=== PATIENT | female | born 1990 | race Two or more races ===

== ENCOUNTER 2020-09-06 08:00 | Outpatient (CLI) | payer OTHER ==
[2020-09-07 20:09] LABS: CANDIDA GROUP DNA NEGATIVE (NEGATIVE); CANDIDA KRUSEI DNA NEGATIVE (NEGATIVE); TRICHOMONAS VAGINALIS DNA NEGATIVE (NEGATIVE)
== END 2020-09-06 23:59 | disposition home or self-care (01) ==
LOC: LAB.R 08:00
PROVIDERS: ATTEND Advanced Practice Midwife
DX: N89.8 Other specified noninflammatory disorders of vagina (principal)
CPT/HCPCS: 87661; 87801

== ENCOUNTER 2020-09-14 11:22 | Outpatient (CLI) | payer OTHER ==
[2020-09-14 18:04] LABS: BASOPHILS % (AUTO) 0.3 %; EOSINOPHILS # (AUTO) 0.1 10^3/uL (0.0-0.7); EOSINOPHILS % (AUTO) 0.5 %; HGB - HEMOGLOBIN 12.8 g/dL (12.0-16.0); LYMPHOCYTES # (AUTO) 1.3 10^3/uL (1.5-3.5); LYMPHOCYTES % (AUTO) 13.6 %; MEAN CORPUSCULAR HEMOGLOBIN 31.6 pg (27.0-31.0); MEAN CORPUSCULAR HGB CONC 34.2 g/dL (32.0-36.0); MEAN CORPUSCULAR VOLUME 92.3 fL (81.0-99.0); MEAN PLATELET VOLUME 11.4 fL (7.9-10.8); MONOCYTES # (AUTO) 0.6 10^3/uL (0.0-1.0); NEUTROPHILS # (AUTO) 7.4 10^3/uL (1.5-6.6); NEUTROPHILS % (AUTO) 78.6 %; PLT - PLATELET COUNT 230 10^3/uL (130-450); RED BLOOD COUNT 4.05 10^6/uL (4.20-5.40); RED CELL DISTRIBUTION WIDTH 13.3 % (12.0-15.0); WHITE BLOOD COUNT 9.4 x10^3/uL (4.8-10.8)
== END 2020-09-14 23:59 | disposition home or self-care (01) ==
LOC: LAB.WCP 11:22
PROVIDERS: ATTEND Advanced Practice Midwife
DX: Z34.90 Encounter for supervision of normal pregnancy, unspecified, unspecified trimester (principal)
CPT/HCPCS: 36415; 82950; 85025; 86850

== ENCOUNTER 2020-09-22 10:30 | Outpatient (CLI) | payer OTHER ==
--- NOTE | 2020-09-22 12:05 | Ultrasound Report ---
PROCEDURE: Transvaginal INDICATIONS: SUPERVISION OF NORMAL ,ANTEPARTUM HEMORRH OUTSIDE/PRIOR DATING DATA: Last menstrual period (LMP): 03/03/2020. LMP-based estimated date of delivery (KATHRYN): 12/08/2020. First dating scan (date and location): [facility], 05/19/2020. Estimated date of delivery (KATHRYN) from first dating scan: 07/23/2020. TECHNIQUE: Real-time scanning was performed of the fetus, with image documentation. Endovaginal scanning: Performed for improved visualization COMPARISON: None available at the time of this dictation. FINDINGS: A single live intrauterine gestation is present. Presentation: Breech Placenta: Placental position is fundal/anterior, without previa. Amniotic fluid index: 12.1 cm, 23rd percentile for gestational age. heart rate: 135 beats per minutes. Maternal cervical canal: 3.3 cm long; there is funneling seen of the internal cervical os, as on imag e 21. IMPRESSION: Funneling is seen of the internal cervical os. The cervical length is 3.3 cm. Note: Concordant preliminary findings given by the minister helper upon the completion of the examination to Dr. Mars at 11:51 AM on 09/22/2020. Reviewed by: Rudi Roberts MD on 09/22/2020 11:03 AM JEFFREY Approved by: Rudi Roberts MD on 09/22/2020 11:03 AM [place] Station ID: [id number]
== END 2020-09-22 10:31 | disposition home or self-care (01) ==
LOC: DI 10:30
PROVIDERS: ATTEND Obstetrics & Gynecology
DX: O46.93 Antepartum hemorrhage, unspecified, third trimester (principal)
CPT/HCPCS: 76830

== ENCOUNTER 2020-11-06 10:49 | Outpatient (CLI) | payer OTHER ==
[2020-11-06 11:31] LABS: RUPTURE OF MEMBRANES PLUS NEGATIVE (NEGATIVE)
[2020-11-06 11:48] VITALS: BP 118/66
--- NOTE | 2020-11-07 11:10 | PROCEDURE REPORT ---
- HPI Diagnosis/Indication for NST: Other (leukorrhea; r/o rupture of membranes) Current EDU 12/05/20 Gestation 35 Weeks and 6 Days 1 Para 0 Vital Signs Temperature 98.2 F 11/06/20 11:00 Heart Rate 78 11/06/20 11:00 Respiratory Rate 20 11/06/20 11:00 Blood Pressure 118/66 11/06/20 11:00 O2 Saturation 99 11/06/20 11:00 Temperature 98.2 F 11/06/20 11:00 Heart Rate 78 11/06/20 11:00 Respiratory Rate 20 11/06/20 11:00 Blood Pressure 118/66 11/06/20 11:00 O2 Saturation 99 11/06/20 11:00 - NST Procedure NST Procedure Start Date 11/06/20 Start Time 11:10 Stop Time 11:55 Vibroacoustic Stimulation Used No Patient States Movement Yes - Results and Plan Findings/Impression: Baseline: 130 Variability; moderate Accelerations: present Decelerations: absent [place]: 0-2 contractions in 10min Assessment: Category 1 NST
== END 2020-11-06 12:02 | disposition home or self-care (01) ==
LOC: WFO 10:49 → FBP 10:50 → WFO 12:02
PROVIDERS: ATTEND Obstetrics & Gynecology
DX: O99.891 Other specified diseases and conditions complicating pregnancy (principal); N89.8 Other specified noninflammatory disorders of vagina; Z3A.35 35 weeks gestation of pregnancy
CPT/HCPCS: 59025; 84112; 99213

== ENCOUNTER 2020-11-13 08:00 | Outpatient (CLI) | payer OTHER | END 2020-11-13 23:59 | disposition home or self-care (01) | LOC: LAB.R 08:00 | PROVIDERS: ATTEND Obstetrics & Gynecology | DX: Z36.85 Encounter for antenatal screening for Streptococcus B (principal) | CPT/HCPCS: 87797 ==

== ENCOUNTER 2020-11-15 06:45 | Inpatient (IN) | payer OTHER ==
[2020-11-15] MEDS ORDERED: CARBOPROST TROMETHAMINE 250 MCG/ML AMP IM PRN (07:09)
[2020-11-15] MEDS ORDERED: METHYLERGONOVINE 0.2 MG/ML VIAL IM PRN (07:09)
[2020-11-15] MEDS ORDERED: SODIUM CHLORIDE FLUSH 0.9% 10 ML SYRINGE IVP PRN (07:09)
[2020-11-15] MEDS ORDERED: OXYTOCIN/SODIUM CHLORIDE 500 ML IV PRN (07:09)
[2020-11-15] MEDS ORDERED: OXYTOCIN 10 UNIT/ML VIAL IM PRN (07:09)
[2020-11-15] MEDS ORDERED: LIDOCAINE-MPF 1% 30 ML VIAL ID PRN (07:09)
[2020-11-15] MEDS ORDERED: TRANEXAMIC ACID 1,000 MG in SODIUM CHLORIDE 0.9% 100ML 100 ML IV PRN (07:09)
[2020-11-15] MEDS ORDERED: miSOPROStoL 200 MCG TABLET BC PRN (07:09)
[2020-11-15] MEDS ORDERED: LIDOCAINE-MPF 1% 30 ML VIAL ONE (07:16)
[2020-11-15] MEDS ORDERED: miSOPROStoL 200 MCG TABLET ONE (07:16)
[2020-11-15] MEDS ORDERED: OXYTOCIN 10 UNIT/ML VIAL ONE (07:16)
[2020-11-15] MEDS ORDERED: HYDROCORTISONE 1% CREAM 28 GM TUBE PR PRN (07:32)
[2020-11-15] MEDS ORDERED: WITCH HAZEL/GLYCERIN 1 PAD TOP PRN (07:32)
[2020-11-15] MEDS ORDERED: diphenhydrAMINE 25 MG CAPSULE PO PRN (07:32)
[2020-11-15] MEDS ORDERED: ONDANSETRON ODT 4 MG TABLET TL PRN (07:32)
--- NOTE | 2020-11-15 07:38 | DELIVERY NOTE ---
Delivery Note - Labor Labor: positive: Spontaneous - Delivery Method Delivery Method: positive: Spontaneous vaginal delivery - Presentation Presentation: positive: Vertex - Nuchal Cord Nuchal Cord: positive: None - Amniotic Fluid Description Amniotic Fluid Description: positive: Clear - Episiotomy Type Episiotomy Type: positive: None - Laceration Laceration: positive: None - Delivery Outcome Delivery Outcome: positive: Livebirth - : positive: Placed in direct skin contact with mother, Stimulated, Warmed, [place] used [place] sex: positive: Male : Apgars 9/10 - Cord Cord: positive: 3 vessels - Placenta Placenta: positive: Intact, Spontaneous - Estimated Blood Loss Estimated Blood Loss (in cc): 20 - Post Delivery Events Post Delivery Events: positive: No post delivery events - Delivery Comments (Free Text/Narrative) Delivery Comments (Free Text/Narrative): 2.5 hour start to finish. SROM clear at 04:30, contractions started after that, arrived complete and +2, pushed x3.
--- NOTE | 2020-11-15 08:04 | HISTORY & PHYSICAL EXAMINATION ---
Admit History - Other Maternal History Other Maternal History: CC: leaking of water HPI: SROM clear at 04:30, contractions started after that, urge to push. No bleeding. PMH: neg PSH: wisdom teeth Allergies: NKDA Meds: PNV SH: no t/e/d. [facility]. Supported by sister and family OB: , uncomplicated . DATING: LMP 02/29/2020 gives KATHRYN of 12/05/2020. US on 05/19/2020 at 11w0d gives KATHRYN 12/08/2019, cwd A pos/Rub imm NIPT 46 XX (Avis) AFP neg CF/SMA carrier screen neg Early glucola 124 FAS anterior, 24%ile, 3VC, FAS wnl, CL 5.8 TDaP complete Glucola 09/14/20 117 Influenza- given at [place] HSV: denies GBS: negative MOD: Anticipate PAP: needs at pp fu CONTRACEPTION: TBD Exam: one elevated BP while marlo Controlled with clear urge to push Complete and +2 station FHT normal baseline A/P: 30yo at 37w1d with active spontaneous labor. Patient delivered shortly after arrival, pushed 3x, had uncomplicated . Plan for routine care. No problems identified. s/p vax x2, Rh+, RI. Meds/Allgy - Allergies Allergies/Adverse Reactions: Allergies Allergy/AdvReac Type Severity Reaction Status Date / Time No Known Drug Allergies Allergy Verified 11/06/20 11:32 Physical - Abdominal Exam Vital Signs: Temp Pulse Resp BP Pulse Ox 98.1 F 84 20 132/98 H 96 11/15/20 06:57 11/15/20 06:57 11/15/20 06:57 11/15/20 06:57 11/15/20 06:57
[2020-11-15 08:16] LABS: BASOPHILS % (AUTO) 0.2 %; EOSINOPHILS % (AUTO) 0.1 %; HGB - HEMOGLOBIN 13.6 g/dL (12.0-16.0); LYMPHOCYTES % (AUTO) 7.6 %; MEAN CORPUSCULAR HEMOGLOBIN 31.7 pg (27.0-31.0); MEAN CORPUSCULAR HGB CONC 35.5 g/dL (32.0-36.0); MEAN CORPUSCULAR VOLUME 89.3 fL (81.0-99.0); MEAN PLATELET VOLUME 12.6 fL (7.9-10.8); MONOCYTES # (AUTO) 0.6 10^3/uL (0.0-1.0); MONOCYTES % (AUTO) 4.8 %; NEUTROPHILS # (AUTO) 10.9 10^3/uL (1.5-6.6); NEUTROPHILS % (AUTO) 86.7 %; PLT - PLATELET COUNT 202 10^3/uL (130-450); RED BLOOD COUNT 4.29 10^6/uL (4.20-5.40); RED CELL DISTRIBUTION WIDTH 12.5 % (12.0-15.0); WHITE BLOOD COUNT 12.6 x10^3/uL (4.8-10.8)
[2020-11-15] MEDS ORDERED: SODIUM CHLORIDE FLUSH 0.9% 10 ML SYRINGE IVP SCH (09:00)
[2020-11-15] MEDS: DOCUSATE SODIUM 100 MG CAPSULE PO SCH ×2 (10:29→21:22)
[2020-11-15] MEDS: IBUPROFEN 600 MG TABLET PO SCH ×3 (10:29→23:20)
[2020-11-15] MEDS: LACTATED RINGERS 1,000 ML IV SCH ×2 (10:30→15:11)
[2020-11-15] MEDS: ACETAMINOPHEN 500 MG TABLET PO SCH (15:10)
[2020-11-16] MEDS: IBUPROFEN 600 MG TABLET PO SCH ×4 (05:17→23:28)
--- NOTE | 2020-11-16 06:34 | PROVIDER PROGRESS NOTE ---
Subjective - Subjective Subjective: S: Patient eating, urinating, ambulating, and well. No heavy bleeding or mood problems. Pain is under good control. AVSS Alert, smiling, no apparent distress Abd soft, nontender, non-distended Fundus nontender at umbilicus Trace lower extremity edema Impression and plan: 30yo P1 PPD #1 s/p at term, uncomplicated. routine PP care, anticipate d/c tomorrow in this primip with little home support. s/p vax x2, Rh+, RI. Objective - Vital Signs/Intake & Output Vital Signs: Vital Signs x48h Temp Pulse Resp BP Pulse Ox 11/16/20 05:15 98.6 F 70 18 107/73 100 11/16/20 00:59 97.9 F 73 18 119/77 100 Intake & Output: Intake & Output 11/13/20 11/14/20 11/15/20 11/16/20 23:59 23:59 23:59 23:59 Output Total 500 Balance -500 - Lab Results Fish Bones: 11/15/20 08:02 Other Labs: Lab Results x24hrs 11/15/20 Range/Units 08:02 WBC 12.6 H (4.8-10.8) x10^3/uL RBC 4.29 (4.20-5.40) 10^6/uL Hgb 13.6 (12.0-16.0) g/dL Hct 38.3 (37.0-47.0) % MCV 89.3 (81.0-99.0) fL MCH 31.7 H (27.0-31.0) pg MCHC 35.5 (32.0-36.0) g/dL RDW 12.5 (12.0-15.0) % Plt Count 202 (130-450) 10^3/uL MPV 12.6 H (7.9-10.8) fL Neut # (Auto) 10.9 H (1.5-6.6) 10^3/uL Lymph # (Auto) 1.0 L (1.5-3.5) 10^3/uL Bowman # (Auto) 0.6 (0.0-1.0) 10^3/uL Eos # (Auto) 0.0 (0.0-0.7) 10^3/uL Baso # (Auto) 0.0 (0.0-0.1) 10^3/uL Absolute Nucleated RBC 0.00 x10^3/uL Nucleated RBC % 0.0 /100WBC
[2020-11-16] MEDS: ACETAMINOPHEN 500 MG TABLET PO SCH ×3 (09:14→17:16)
[2020-11-16] MEDS: DOCUSATE SODIUM 100 MG CAPSULE PO SCH (11:52)
[2020-11-17] MEDS: DOCUSATE SODIUM 100 MG CAPSULE PO SCH ×2 (04:46→08:10)
[2020-11-17] MEDS: IBUPROFEN 600 MG TABLET PO SCH ×2 (05:05→12:19)
[2020-11-17] MEDS: ACETAMINOPHEN 500 MG TABLET PO SCH (05:05)
[2020-11-17 08:23] VITALS: BP 113/77
--- NOTE | 2020-11-17 08:23 | Discharge Plan ---
Discharge Plan Problem Reviewed?: Yes Disposition: Home, Self Care Condition: Good Prescriptions: Docusate Sodium 100Mg Capsule [Colace 100Mg Capsule] 100 mg PO BID PRN #30 capsule PRN Reason: to soften stool Ibuprofen [Motrin] 600 mg PO Q6H PRN #30 tab PRN Reason: Pain Acetaminophen [Tylenol] 650 mg PO Q6H PRN #30 tab PRN Reason: Pain Diet: Regular Shower Restrictions: No Driving Restrictions: No Additional Instructions or Follow Up instructions: Nothing in the vagina for 6 weeks: No intercourse, tampons, douching Call for: -Fever greater than 100.5 -Pain that worsens over time -Heavy bleeding in which you are soaking a pad an hour for 2 hours in a row -Incisions that become hot, firm, or open -Worsening of mood, hallucinations, feeling like you want to hurt yourself or others -If one leg is swollen, hot, and tender Ok to shower, drive, and walk up stairs No Smoking: If you smoke, Please STOP! Call for help. Follow-up with: Harry Escalera MD [Provider Admit Priv/Credential] - (1w and 6w)
--- NOTE | 2020-11-17 10:29 | DISCHARGE SUMMARY ---
Physician: Anahy Blas MD DATE OF ADMISSION: 11/15/2020 DATE OF DISCHARGE: 11/17/2020 ADMISSION DIAGNOSES 1. Intrauterine at 37 weeks 1 day. 2. Active spontaneous labor. DISCHARGE DIAGNOSIS: Status post spontaneous vaginal delivery at term. PROCEDURE: On 11/15/2020, spontaneous vaginal delivery, uncomplicated. HOSPITAL COURSE: The patient was admitted from triage at complete and +2 station. She rapidly deliv ered, uncomplicated. Her course was unremarkable. By day #2, she was ready to go home. She was eating, ambulating, urinating, and without difficulty. She did not have any remarkable pain in her belly or vulva. No mood problems and she was sleeping well. No heav y bleeding. She was afebrile with normal vital signs. She was alert and pleasant, and in no apparen t distress. PHYSICAL EXAMINATION: The abdomen is soft, nontender, and nondistended. Fundus firm and 2 cm below the umbilicus, nontender. There is trace lower extremity edema present. No hematocrit was done because her admission hematocrit was 38 and she had scant blood los s. She is Rh positive, rubella immune, and has already received her Tdap and influenza vaccines. DISCHARGE DISPOSITION: Home. CONDITION: Good. FOLLOWUP: In 1 week at [facility] MEDICATIONS: Ibuprofen, Tylenol, and Colace p.r.n. PRECAUTIONS: Routine precautions given. TD: 11/17/2020 08:28
--- NOTE | 2020-11-17 13:36 | Labor Flowsheet ---
Labor Flowsheet Datetime Report Generated by CPN: 11/17/2020 13:35 Datetime: 11/15/2020 09:17 Stage of : Recovery Datetime: 11/15/2020 09:15 VITAL SIGNS NBP Sys/Brunilda/Mean (mmHg): 117 : 79 : 88 Pulse: 73
== END 2020-11-17 13:10 | disposition home or self-care (01) | DRG 807 ==
LOC: WFO 06:45 → FBP 06:50 → WFO 07:04 → FBP 07:05
PROVIDERS: ADMIT Obstetrics & Gynecology; ATTEND Obstetrics & Gynecology
PROC: 10E0XZZ Delivery of Products of Conception, External Approach (ICD-10-PCS; principal; 2020-11-15)
DX: O42.02 Full-term premature rupture of membranes, onset of labor within 24 hours of rupture (principal); Z37.0 Single live birth; Z3A.37 37 weeks gestation of pregnancy; Z74.2 Need for assistance at home and no other household member able to render care; Z20.822 Contact with and (suspected) exposure to COVID-19
CPT/HCPCS: 36415; 85025; 87635; 99212; A9270; 86850; 86900; 86901